=== PATIENT | male | born 1950 | race Caucasian/White ===

== ENCOUNTER → 2021-06-12 | Outpatient (CLI) | payer OTHER ==
[~2021-06-12] MED LIST: CIALIS5 MG PO; NOHOMEMEDICATIONS; NORCO 5-325 TA1 EAC2 PO; NORCO 5-325 TA1 EACH PO; OXYIR5 MG PO
== END ==
LOC: LAB 11:41
PROVIDERS: ATTEND Student in an Organized Health Care Education/Training Program
DX: Z01.812 Encounter for preprocedural laboratory examination (principal); Z20.822 Contact with and (suspected) exposure to COVID-19

== ENCOUNTER 2021-06-14 06:23 | Day surgery (SDC) | payer OTHER ==
[~2021-06-14] VITALS: Ht 172.7 cm; Wt 72.6 kg
--- NOTE | ~2021-06-14 | O ---
[facility] [place] [place] [address] OPERATIVE REPORT Name: MILO MANLEY Room #: 150-2 [facility] M.R.#: [id number] Admission: 06/14/21 Attend Phys: Jay Ruff MD Discharge: Date of : 54 Report #: [id number] THIS REPORT FOR: cc: CIERA DERAS NP, AMY NP White, William L. MD ~ cc: José Luis Hurt MD, Nakita Sears OD, Ciera Jimenez NP DATE OF SERVICE: 06/14/2021 PREOPERATIVE DIAGNOSIS: Tumor of left lower lid. POSTOPERATIVE DIAGNOSIS: Tumor of left lower lid. PROCEDURE: Excision of tumor of left lower lid with frozen section control of margins and myocutaneous flap repair of defect. SURGEON: Jay Ruff MD ELECTRONIC IMAGER: None. ANESTHESIA: MAC. COMPLICATIONS: None. INDICATIONS FOR SURGERY: This pleasant 70-year-old gentleman has an ulcerative nodule in his lateral left lower lid that appears to be a basal cell carcinoma. He presents today for excision of this lesion with frozen sections and subsequent reconstruction of that defect. Informed consent was obtained to include but not limited to the potential risk for loss of vision, bleeding, infection, failure to improve the problem, and the potential need for further surgery or treatment. DESCRIPTION OF PROCEDURE: The patient was taken to the operating room where 2% Xylocaine with epinephrine mixed with equal parts 0.75% Marcaine with Wydase was administered transcutaneously and transconjunctivally to the left lower lid, the left lateral canthus and the cheek. The infratemporal fossa was additionally anesthetized. The patient was then prepped and draped in the usual sterile fashion. A fine tip skin marking pen was then utilized to outline the lesion including approximately 2 mm of normal appearing tissue around its margins. The incisions were then made perpendicularly across the eyelid margin and drawn to a point in the pre-malar space. The specimen was then oriented on a drawing for the waiting pathologist. The pathologist snap froze the tissue and found that our margins were clear. A myocutaneous flap was then developed laterally to be rotated inferomedially to [address] [address] OPERATIVE REPORT Name: MILO MANLEY Room #: 150-2 [facility]..#: [id number] Admission: 06/14/21 Attend Phys: Jay Ruff MD Discharge: Date of : 54 Report #: [id number] correct the defect. Hemostasis was then re-achieved. The flap was then advanced and secured with multiple interrupted 5-0 Vicryl sutures deep. The tarsal plate was reapproximated with interrupted 5-0 Vicryl sutures. The eyelid margin was reapproximated with interrupted 7-0 Vicryl sutures. The subcutaneous structures and the skin superficially were then closed with buried Vicryl sutures and then a final closure of 6-0 plain gut sutures. The wounds were then cleaned and dressed with erythromycin ophthalmic ointment. The patient subsequently transported to the recovery area having tolerated the procedure well with no anesthetic or operative complications being noted. By: [id number] Jay Ruff MD /nt
[2021-06-14 07:21] VITALS: BP 119/73
--- NOTE | 2021-06-15 21:09 | PATH ---
[facility] [address] [place] [address] PATHOLOGY RPT PROCEDURE Name: MILO MANLEY Room #: DEP [facility] M.R.#: [id number] Admission: 06/14/21 Date of : 54 Discharge: 06/14/21 Report #: [id number] Path Case #: [id number] [facility] Accession Number: [id number] . 01 Material submitted: . eyelid - LESION LEFT LOWER EYELID FS. Modifiers: left, lower . 01 Clinical history: . EXCISION LESION EYELID . 02 Frozen section diagnosis: . FROZEN SECTION DIAGNOSIS: (Garima Delgadillo MD) . FSA1 - Lesion, left lower lid: - Basal cell carcinoma. - Medial, lateral and inferior margins are negative. . This report was given to Dr. Jay Ruff at [facility] on 06/14/2021 at 7:43 a.m. A written report is also placed in the patient's chart. . Frozen section performed at [facility], [address] , [place] [address]. . FROZEN SECTION GROSS DESCRIPTION: Received fresh from the operating room is a triangular skin fragment which measures 0.6 x 0.4 x 0.4 cm. The specimen is oriented per surgeon as follows: lateral which is subsequently inked black, medial subsequently inked blue, and inferior tip subsequently inked red. The specimen is serially sectioned from superior to inferior aspect and submitted entirely for frozen section diagnosis in FSA1 and subsequently in block A1 in formalin. (ANK:delmis; 06/14/2021) NNK/QMS . 02 Diagnosis: Lesion, left lower lid, excision: - Basal cell carcinoma. - Medial, lateral, and inferior margins are negative. - Deep margin is negative for malignancy. (ANK:pit; 06/15/2021) QTP 06/15/2021 1359 Local . 02 Electronically signed: . Garima Delgadillo MD, Pathologist NPI- [id number] . [address] [place] [address] PATHOLOGY RPT PROCEDURE Name: MILO MANLEY Room #: DEP [place] M.R.#: [id number] Admission: 06/14/21 Date of : 54 Discharge: 06/14/21 Report #: [id number] Path Case #: [id number] Gross description: . PLEASE SEE GROSS DESCRIPTION UNDER FROZEN SECTION HEADING. /QMS 06/14/2021 1126 Local . 02 Pathologist provided ICD-10: C44.1192 . 02 CPT . 799900, 278667 Specimen Comment: A courtesy copy of this report has been sent to [phone] Specimen Comment: Report sent to Performed at: [address], [place] [id number] MD Pool Mena MD Phone: [phone] Performed at: [address] [id number] MD Angela Viera MD Phone: [phone]
== END 2021-06-14 08:45 | disposition home or self-care (01) ==
LOC: OR → TBA 06:24 → OR 07:15
PROVIDERS: ATTEND Ophthalmology
DX: C44.1192 Basal cell carcinoma of skin of left lower eyelid, including canthus (principal); Z85.828 Personal history of other malignant neoplasm of skin; Z98.890 Other specified postprocedural states; Z88.0 Allergy status to penicillin
CPT/HCPCS: 50010; 50101; 50386; 50398; 51636; 62110; 62850; 70005